=== PATIENT | female | born 1960 | race Caucasian/White ===

== ENCOUNTER 2017-07-31 07:23 | Day surgery (SDC) | payer BC ==
[2017-07-27 15:32] VITALS: BMI 30.9
[2017-07-31] MEDS ORDERED: PROPOFOL 20 ML ONE (08:02)
[2017-07-31 09:16] VITALS: TEMP 97.5
[2017-07-31 09:20] VITALS: BP 122/72; PULSE 62
--- NOTE | 2017-08-03 15:17 | PATH ---
Surgical Pathology Report Patient Name: AVA JAMES [facility]. Rec. #: [id number] /Age/Gender: 1960 (Age: 57) / F Account: [id number] Location: PENDING SALE TO [facility] Taken: 07/31/2017 Received: 07/31/2017 Reported: 08/03/2017 Physicians: Yumiko Mason M.D. Specimen(s) Received A: DESCENDING POLYPS B: BX SIGMOID Clinical History Change in bowel habits, colonic polyp Final Diagnosis A. DESCENDING COLON POLYPS, BIOPSY: ONE FRAGMENT OF TUBULAR ADENOMA. SEPARATE FRAGMENTS OF COLONIC MUCOSA WITH LYMPHOID AGGREGATE. B. SIGMOID, BIOPSY: FRAGMENTS OF COLONIC MUCOSA WITH LYMPHOID FOLLICLES. Electronically Signed Ava Prajapati M.D. Gross Description A. Received in formalin, labeled "descending polyps" are 3 guerrero, irregular portions of soft tissue measuring 0.4 cm. in greatest dimension. The specimens are submitted in toto in one cassette. B. Received in formalin, labeled "sigmoid" are 2 guerrero, irregular portions of soft tissue measuring 0.4 cm. in greatest dimension. The specimens are submitted in toto in one cassette. KWS/08/01/2017 [email or web address]/08/01/2017
== END 2017-07-31 09:25 | disposition home or self-care (01) ==
LOC: FASU 07:23
PROVIDERS: ATTEND Internal Medicine
PROC: 0DBN8ZX Excision of Sigmoid Colon, Via Natural or Artificial Opening Endoscopic, Diagnostic (ICD-10-PCS; principal; 2017-07-31 08:11)
DX: D12.5 Benign neoplasm of sigmoid colon (principal); K57.30 Diverticulosis of large intestine without perforation or abscess without bleeding; R19.4 Change in bowel habit; K64.4 Residual hemorrhoidal skin tags
CPT/HCPCS: 84703; 88305-TC

== ENCOUNTER 2017-09-13 08:12 | Emergency (ER) | payer BC ==
[2017-09-13 08:17] VITALS: BP 154/95; PULSE 79; TEMP 98.5; BMI 31.8
--- NOTE | 2017-09-13 08:25 | PDOC ---
History of Present Illness - General Chief Complaint: RX Refill Stated Complaint: OXYCODONE REFILL/ SHINGLES Time Seen by Provider: 09/13/17 08:16 History Source: Patient Exam Limitations: No Limitations - History of Present Illness Initial Comments: 09/13/17 08:24 57 yo F with h/o shingles, here for worsening pain. has been taking tylenol no relief. also tried calamine and bacitracin and coconut oil rash now scabbing. is taking antivirals. no f/c pain is severe. limited to right thorax and wraps around to right breast. no scabbing over. 09/13/17 08:30 Past History - Past Medical History Allergies/Adverse Reactions: Allergies Allergy/AdvReac Type Severity Reaction Status Date / Time No Known Allergies Allergy Verified 09/13/17 08:14 Home Medications: Ambulatory Orders Valacyclovir HCl [Valtrex -] 1,000 mg PO TID #21 tablet 09/06/17 Ibuprofen [Motrin -] 600 mg PO TID PRN #90 tablet MDD 3 09/13/17 Oxycodone HCl/Acetaminophen [Percocet 5-325 mg Tablet] 1 tab PO Q6H PRN #12 tablet MDD 4 tabs 09/13/17 Anemia: No Asthma: No Cancer: No Cardiac Disorders: No CVA: No COPD: No CHF: No DVT: No Dementia: No Diabetes: No GI Disorders: No Disorders: No HTN: No Hypercholesterolemia: No Liver Disease: No Seizures: No Thyroid Disease: No - Suicide/Smoking/Psychosocial Hx Smoking Status: No Smoking History: Never smoked Number of Cigarettes Smoked Daily: 0 Hx Alcohol Use: No Drug/Substance Use Hx: No Substance Use Type: None *Physical Exam - Vital Signs Last Vital Signs Temp Pulse Resp BP Pulse Ox 98.5 F 79 18 154/95 100 09/13/17 08:13 09/13/17 08:13 09/13/17 08:13 09/13/17 08:13 09/13/17 08:13 - Physical Exam General Appearance: Yes: Nourished Respiratory/Chest: positive: Lungs Clear, Normal Breath Sounds Cardiovascular: positive: Regular Rhythm, Regular Rate, S1, S2 Integumentary: positive: Other (shingles like rrash right inframmamary area and breast. ) Medical Decision Making - Medical Decision Making 09/13/17 08:32 pt with shingles and nueropathic pain. will given small rx for oxycodone. explained concerns for addictive nature of medication. recommend antiinflammatories first then narcotics only as needed. encourage followup with dr. chambers. *DC/Admit/Observation/Transfer Diagnosis at time of Disposition: Shingles (herpes zoster) polyneuropathy - Discharge Dispostion Disposition: HOME Condition at time of disposition: Stable - Prescriptions Prescriptions: Ibuprofen [Motrin -] 600 mg PO TID PRN #90 tablet MDD 3 PRN Reason: Pain Oxycodone HCl/Acetaminophen [Percocet 5-325 mg Tablet] 1 tab PO Q6H PRN #12 tablet MDD 4 tabs PRN Reason: Pain - Referrals Referrals: Courtney Willis MD [Staff Physician] - - Patient Instructions Printed Discharge Instructions: Shingles Additional Instructions: you can take ibuprofen 600 mg every 8 hrs as needed for pain. take with food. you can take oxycodone 5 mg every 6 hours only as needed for resistant pain. - Post Discharge Activity
[2017-09-13] MEDS ORDERED: IBUPROFEN 600 MG TABLET (FP) PO ONE ×2 (08:37→08:45)
== END 2017-09-13 08:49 | disposition home or self-care (01) ==
LOC: FER 08:12
DX: B02.9 Zoster without complications (principal); G62.9 Polyneuropathy, unspecified; Z76.0 Encounter for issue of repeat prescription
CPT/HCPCS: 99281-25

== ENCOUNTER 2017-09-27 10:05 | Emergency (ER) | payer BC ==
[2017-09-27 10:14] VITALS: BP 154/79; PULSE 69; TEMP 98; BMI 31.8
--- NOTE | 2017-09-27 11:30 | PDOC ---
History of Present Illness - General Chief Complaint: Pain Stated Complaint: BACK/CHEST DISCOMFORT Time Seen by Provider: 09/27/17 11:18 History Source: Patient - History of Present Illness Timing/Duration: other (09/06) Associated Symptoms: reports: rash Past History - Past Medical History Allergies/Adverse Reactions: Allergies Allergy/AdvReac Type Severity Reaction Status Date / Time No Known Allergies Allergy Verified 09/27/17 10:09 Home Medications: Ambulatory Orders Valacyclovir HCl [Valtrex -] 1,000 mg PO TID #21 tablet 09/06/17 Ibuprofen [Motrin -] 600 mg PO TID PRN #90 tablet MDD 3 09/13/17 Oxycodone HCl/Acetaminophen [Percocet 5-325 mg Tablet] 1 tab PO Q6H PRN #12 tablet MDD 4 tabs 09/13/17 Hydrocodone/Ibuprofen [Hydrocodone-Ibuprofen 7.5-200] 1 each PO Q6H #20 tablet MDD 4 tabs 09/27/17 Anemia: No Asthma: No Cancer: No Cardiac Disorders: No CVA: No COPD: No CHF: No DVT: No Dementia: No Diabetes: No GI Disorders: No Disorders: No HTN: No Hypercholesterolemia: No Liver Disease: No Seizures: No Thyroid Disease: No - Suicide/Smoking/Psychosocial Hx Smoking Status: No Smoking History: Never smoked Number of Cigarettes Smoked Daily: 0 Hx Alcohol Use: No Drug/Substance Use Hx: No Substance Use Type: None Review of Systems - Review of Systems Constitutional: No: Chills, Fever Integumentary: Yes: Rash Neurological: No: Numbness, Tingling *Physical Exam - Vital Signs Last Vital Signs Temp Pulse Resp BP Pulse Ox 98 F 69 18 154/79 99 09/27/17 10:07 09/27/17 10:07 09/27/17 10:07 09/27/17 10:07 09/27/17 10:07 - Physical Exam General Appearance: Yes: Appropriately Dressed. No: Apparent Distress HEENT: positive: Normal Voice Neck: positive: Supple Respiratory/Chest: negative: Respiratory Distress Integumentary: positive: Dry, Warm, Rash (well healing rash to R chest/upper back in T4 dermatome) Neurologic: positive: Fully Oriented, Alert, Normal Mood/Affect Medical Decision Making - Medical Decision Making 09/27/17 11:46 57 yo F, dx w/ shingles to R chest > 3 weeks ago in ER, completed valtrex. States she was also given oxycodone which sig improved pain and that she ended up going to ER at [facility] for med refill because pain had continued. States after that she ended up seeing her primary doctor who started her on gabapentin and motrin, but states medications were not relieving pain so decided to come to ER this a.m. States she was given a referral to pain management, which she has yet to see. States rash has significantly improved. No sensory changes, fever or chills See exam Post herpetic neuralgia -dc w/ pain control -has pain referral 09/27/17 11:59 *DC/Admit/Observation/Transfer Diagnosis at time of Disposition: Post herpetic neuralgia - Discharge Dispostion Disposition: HOME Condition at time of disposition: Good - Prescriptions Prescriptions: Hydrocodone/Ibuprofen [Hydrocodone-Ibuprofen 7.5-200] 1 each PO Q6H #20 tablet MDD 4 tabs - Referrals Referrals: Courtney Willis MD [Primary Care Provider] - - Patient Instructions Printed Discharge Instructions: Shinraghav Additional Instructions: Take medication as directed and follow up with pain management at this time - Post Discharge Activity
== END 2017-09-27 11:53 | disposition home or self-care (01) ==
LOC: JERFT 10:05 → JER 10:05 → JERFT 11:53
DX: B02.29 Other postherpetic nervous system involvement (principal)
CPT/HCPCS: 99281-25

== ENCOUNTER 2020-07-31 06:22 | Emergency (ER) | payer BC ==
[2020-07-31 06:58] VITALS: BP 114/73; PULSE 70; TEMP 99.5; BMI 33.6
[2020-07-31] MEDS ORDERED: PANTOPRAZOLE SODIUM 40 MG VIAL IVPUSH ONE (07:27)
[2020-07-31] MEDS ORDERED: KETOROLAC TROMETHAMINE 30 MG/1 ML VIAL IVPUSH ONE (07:27)
[2020-07-31] MEDS ORDERED: KETOROLAC TROMETHAMINE 30 MG/1 ML VIAL ONE (08:10)
[2020-07-31] MEDS ORDERED: PANTOPRAZOLE SODIUM 40 MG/100 ML BAG IVPB ONE (08:10)
[2020-07-31 08:49] LABS: EPI CELLS 15 /uL (0-25.1); HYALINE CASTS 4 /uL (0-3.1); PH,URINE 5.5 (5.0-8.0); URINE APPEARANCE CLEAR; URINE BACTERIA 13 /uL (0-1359); URINE BILIRUBIN NEGATIVE (NEGATIVE); URINE COLOR DK YELLOW; URINE GLUCOSE (UA) NEGATIVE (NEGATIVE); URINE KETONE TRACE (NEGATIVE); URINE LEUK ESTERASE TRACE (NEGATIVE); URINE NITRITE NEGATIVE (NEGATIVE); URINE PROTEIN 1+ (NEGATIVE); URINE RBC 18 /uL (0-23.9); URINE WBC 11 /uL (0-25.8)
[2020-07-31 08:51] LABS: BASO % 0.8 % (0-2.0); EOS % 1.4 % (0-4.5); HEMATOCRIT 41.5 % (32.4-45.2); HEMOGLOBIN 13.7 GM/dL (10.7-15.3); LYMPH % 12.7 % (8-40); MCH 26.8 pg (25.7-33.7); MEAN CELL VOLUME 81.2 fl (80-96); MEAN PLT VOLUME 8.9 fl (7.5-11.1); MONO % 8.6 % (3.8-10.2); NEUT % 76.5 % (42.8-82.8); PLATELET COUNT 261 K/MM3 (134-434); RBC 5.11 M/mm3 (3.60-5.2); RDW 13.8 % (11.6-15.6); WHITE BLOOD COUNT 12.9 K/mm3 (4.0-10.0)
[2020-07-31 09:01] LABS: ALBUMIN 3.8 g/dl (3.4-5.0); BLOOD UREA NITROGEN 14.4 mg/dL (7-18); CALCIUM 9.2 mg/dL (8.5-10.1)
[2020-07-31 09:04] LABS: CREATININE 0.8 mg/dL (0.55-1.3)
[2020-07-31 09:06] LABS: BILIRUBIN,TOTAL 0.7 mg/dL (0.2-1)
== END 2020-07-31 11:47 | disposition home or self-care (01) ==
LOC: JER 06:22
PROC: 3E0333Z Introduction of Anti-inflammatory into Peripheral Vein, Percutaneous Approach (ICD-10-PCS; principal; 2020-07-31)
PROC: 3E033GC Introduction of Other Therapeutic Substance into Peripheral Vein, Percutaneous Approach (ICD-10-PCS; 2020-07-31)
DX: R10.32 Left lower quadrant pain (principal); K57.92 Diverticulitis of intestine, part unspecified, without perforation or abscess without bleeding
CPT/HCPCS: 36415; 74177-TC; 80053; 81003; 83690; 85025; 87077; 87086; 99285-25; Q9967